=== PATIENT | female | born 1970 | race Two or more races ===

== ENCOUNTER 2024-11-09 06:23 | Emergency (ER) | payer OTHER ==
[~2024-11-09] VITALS: Ht 160 cm; Wt 68.2 kg
[2024-11-09 06:40] VITALS: TEMP 97.9
[2024-11-09 07:07] LABS: PLATELET COUNT (AUTO) 330 K/uL (150-450); RED BLOOD CELL COUNT(AUTO) 4.94 MIL/uL (4.00-5.20); RED CELL DISTRIBUTION WIDTH 14.8 % (11.5-14.5); WHITE BLOOD COUNT (AUTO) 5.8 K/uL (4.5-11.0)
[2024-11-09 07:14] LABS: CALCIUM, TOTAL 9.3 mg/dL (8.8-10.5); CREATININE 0.71 mg/dL (0.60-1.30); GLOMERULAR FILTR. RATE CALC > 60 mL/min (>60); GLUCOSE,RANDOM 107 mg/dL (70-110); SODIUM SERUM 138 mmol/L (136-145); UREA NITROGEN, BLOOD 16 mg/dL (7-18)
[2024-11-09] MEDS: NITROGLYCERIN 2% (1 GM=INCH) OINTMENT PACKET TP ONE (07:15)
[2024-11-09] MEDS: ASPIRIN 81 MG CHEWABLE TABLET PO ONE (07:15)
[2024-11-09 07:23] LABS: TROPONIN I-HIGH SENSITIVITY 4 ng/L (<51)
[2024-11-09 08:16] VITALS: BP 141/84; PULSE 63; RESP 18; O2SAT 98
[2024-11-09] MEDS: IBUPROFEN 600 MG TABLET PO ONE (08:28)
[2024-11-09] MEDS ORDERED: IBUP-1492 PO (09:02)
[2024-11-09] MEDS ORDERED: LOSA-381 PO (09:04)
== END 2024-11-09 09:10 | disposition home or self-care (01) ==
LOC: EMS 06:23
DX: R07.89 Other chest pain (principal); I10 Essential (primary) hypertension
CPT/HCPCS: 71045; 80048; 83880; 84484; 85025; 93005; 99285; 36415-L1; 36415-TC